=== PATIENT | female | born 1975 | race Caucasian/White ===

== ENCOUNTER 2021-01-03 17:33 | Emergency (ER) | payer BC, SELFPAY ==
[2021-01-03 17:38] VITALS: BP 114/70; PULSE 107; RESP 16; TEMP 36.5; O2SAT 100
--- NOTE | 2021-01-03 18:31 | ED.GENADULT ---
HPI - General Adult General Chief complaint: Urogenital-Female Stated complaint: FB VAGINA Time Seen by Provider: 01/03/21 18:31 Source: patient and RN notes reviewed Mode of arrival: ambulatory Limitations: no limitations History of Present Illness HPI narrative: 45-year-old female presents with complaints of foreign body in vaginal cavity for the past 2 hours. Maritza reports inserting a tampon in vaginal due to possible menstrual cycle, and is unable to remove it. No dysuria, burning, frequency, and urgency. No treatment. Denies fever or chills. Denies nausea, vomiting, and abdominal pain. Tolerating po intake well. No significant pelvic pain. No vaginal discharge. No concerns for STDs. Denies being , last menstrual 4 weeks ago, irregular, pre menopausal. No flank pain. No exacerbating factors. Denies hematuria or abnormal vaginal bleeding. Remains active. The patient reports she have not been diagnosed with COVID-19. The patient reports she is not waiting for the results of a COVID-19 lab test. The patient reports she do not have fever, chills, weakness, fatigue, or myalgia. The patient reports she do not have a new or worsening cough or shortness of breath. Denies chest pain. The patient reports she do not have any rhinorrhea, congestion, sore throat, or diarrhea. Denies recent traveling. Denies concerns for COVID-19 or exposures been home with limited outdoor exposure except for essential household needs, work, and return home. At this time, patient is not suspected of having COVID-19. Some parts of this dictation were generated by voice recognition software and may contain typographical and/or grammatical inaccuracies. Related Data Home Medications Medication Instructions Recorded Confirmed No Home Medications 01/03/21 01/03/21 Allergies Allergy/AdvReac Type Severity Reaction Status Date / Time shellfish derived Allergy Nausea and Verified 01/03/21 17:38 Vomiting Review of Systems Review of Systems: Narrative: Narrative: CONSTITUTIONAL: Denies fever, chills, sweats. EYES: Denies visual changes, redness, discharge. ENT: Denies rhinorrhea, congestion, sore throat, otalgia. CARDIOVASCULAR: Denies chest pain, palpitations, edema. RESPIRATORY: Denies dyspnea, wheezing, cough. GASTROINTESTINAL: Denies abdominal pain, nausea, vomiting, diarrhea. GENITOURINARY: Complains of stuck tampon in vagina. Denies dysuria, hematuria, abnormal discharge. SKIN: Denies rash or itching. MUSCULOSKELETAL: Denies acute back pain, joint pain, or myalgia. NEUROLOGIC: Denies numbness or focal weakness. PSYCHIATRIC: Denies anxiety or depression. All systems reviewed & are unremarkable except as noted in HPI and below. [facility] Past Medical History Medical History (Updated 01/04/21 @ 22:37 by LANETTE Webb) Ankle fracture Premenopausal patient Surgical History Surgical History (Updated 01/04/21 @ 22:37 by LANETTE Webb) History of bone graft at age 13 Family History Family History (Updated 01/04/21 @ 22:45 by LANETTE Webb) Father Lung cancer Smoker in home Mother Lung cancer Smoker in home Social History Social History (Updated 01/04/21 @ 22:46 by LANETTE Webb) Smoking status: Former smoker Tobacco type: cigarettes Second hand tobacco smoke exposure: No Smoking end date: 05/04/16 Alcohol intake: current Substance use: never Substance use type: does not use Living arrangements: with family Occupation/Education: occupation Gender identity (if verbalized by the patient): Female Sexual Orientation (if Verbalized by the Patient): Straight or Heterosexual Comments At time of signature, I have reviewed and agree with nursing past medical, surgical, social, and family history. Please see nursing chart for further information. There is no patient's past medical history or family history relevant pertinent t
== END 2021-01-03 18:52 | disposition home or self-care (01) ==
PROVIDERS: Emergency Provider Nurse Practitioner Family
DX: T19.2XXA Foreign body in vulva and vagina, initial encounter (principal); Z87.891 Personal history of nicotine dependence
CPT/HCPCS: 99212; G0463

== ENCOUNTER 2024-07-07 21:29 | Inpatient (IN) | payer OTHER, SELFPAY ==
--- NOTE | ~2024-07-07 | XR_ITS ---
XR chest 2V Ordering provider: Tisha Erazo PA-C History: 48 years Female with . cough, dyspnea . Comparison: None. FINDINGS: MEDIASTINUM: The cardiac silhouette is not enlarged. LUNGS: No effusions or pneumothorax. Loss of silhouette of the cardiac apex suggestive of atelectasis versus pneumonia in the lingula. Prominent markings in the right lung base medially. OTHER: No free air under the diaphragm. IMPRESSION: Highly suggestive of atelectasis versus pneumonia in the lingula. Follow-up advised. Reviewed, dictated and finalized at location A. IMPRESSION: Highly suggestive of atelectasis versus pneumonia in the lingula. Follow-up adv ised.
--- NOTE | ~2024-07-07 | CT_ITS ---
CT diagnostic chest w con Ordering provider: Britta Kumar MD History: 48 years Female with . hemoptysis . Comparison: None. Technique: CT chest with IV contrast. Radiation reduction technique utilized. The dose-length product was 219.54 mGy-cm. 75 mL Omnipaque 35 0 was given IV. Findings: VISUALIZED THORACIC INLET: Normal. Hypodensity in the left lobe of thyroid most likely small residual measuring 8 mm. Ultrasound evaluation advised. MEDIASTINUM: Aorta/coronary arteries: The thoracic aorta is normal. Heart/other: The heart is not enlarged. Lymph nodes: No mediastinal or hilar adenopathy. LUNGS: No pulmonary nodules or masses. No infiltrates or effusions. No pneumothorax. Dependent atelec tatic changes. VISUALIZED UPPER ABDOMEN: Fat infiltration of the liver Otherwise, the visualized upper abdomen is no rmal. MUSCULOSKELETAL: Soft tissues: The superficial soft tissues are normal. Bones: Age appropriate degenerative changes of the spine. IMPRESSION: No acute cardiopulmonary pathology. Dependent atelectatic changes. Fat infiltration of the liver. Hypodensity in the left lobe of the thyroid most likely nodule. Ultrasound evaluation advised. Reviewed, dictated and finalized at location A. IMPRESSION: No acute cardiopulmonary pathology. Dependent atelectatic changes. Fat infiltration of the liver. Hypodensity in the left lobe of the thyroid most likely nodule. Ultrasound eval uation advised.
--- NOTE | ~2024-07-07 | US_ITS ---
EXAMINATION: US right upper quadrant DATE: 07/08/2024 11:43 INDICATION: Abnormal liver function tests. Alcohol abuse. TECHNIQUE: Multiple grayscale and Doppler ultrasound images of the abdomen were obtained. COMPARISON: None FINDINGS: The visualized portions of the head and body of the pancreas are normal. There is diffuse h epatic steatosis. There is normal flow in main portal vein. The gallbladder is normal in size and con tains sludge. No definite gallstones. No gallbladder wall thickening or sonographic Hurtado sign. The common duct is normal and measures 5 mm. IMPRESSION: 1. Diffuse hepatic steatosis. Reviewed, dictated and finalized at location A.
[2024-07-07 21:30] VITALS: BP 137/81; PULSE 112; RESP 20; TEMP 36.6; O2SAT 94
--- NOTE | 2024-07-07 21:57 | PC.NURSE ---
patient states they have had two beat boxes which are drinks containing alcohol, as well as, an unknown amount of pink herman vodka drinks. they state they drink daily for an unknown amount of years. notified provider that their may be presence of blood in vomit since arrival
[2024-07-07] MEDS: ONDANSETRON INJ 4 MG/2 ML VIAL IV PUSH (22:12)
[2024-07-07 22:27] LABS: Influenza A QL RT-PCR Negative (Negative); Influenza B QL RT-PCR Negative (Negative); RSV RNA, RT-PCR Negative (Negative); SARS-CoV-2 RNA PCR Negative (Negative)
--- NOTE | 2024-07-07 22:35 | ECG_ITS ---
Test Date: 2024-07-07 22:52:28 Measurements Intervals [place] Rate: 122 P: 0 SC: 0 QRS: -3 QRSD: 76 T: 50 QT: 308 QTc: 439 Interpretive Statements SINUS TACHYCARDIA RV CONDUCTION DELAY ABNORMAL RHYTHM ECG No previous ECG available for comparison Electronically Signed On 07-08-2024 14:55:25 CDT by Manfred Zacarias M.D.
--- NOTE | 2024-07-07 22:43 | ED.NAVMDI ---
HPI - Nausea/Vomiting/Diarrhea General Chief complaint: Nausea/Vomiting/Diarrhea <Tisha Erazo PA-C - Last Filed: 07/09/24 14:03> Stated complaint: nausea,vomiting <TOÑO Alatorre Last Filed: 07/09/24 14:03> Time Seen by Provider: 07/07/24 21:50 <TOÑO Alatorre Last Filed: 07/09/24 14:03> History of Present Illness HPI Narrative: 48-year-old female presents emergency department for nausea and vomiting that started a couple hours ago. Patient states she is vomiting blood. States it changes from brown dark blood to bright red blood. She denies history of this. Denies chest pain, abdominal pain, melena or hematochezia. She denies anticoagulation or history of GI bleeds. She does state that she is an alcoholic and drinks approximately 8-12 oz of vodka a day. She is also endorsing some shortness of breath and cough since she has been vomiting. She is unsure if she has aspirated. She denies fever or known liver disease or esophageal varices. Patient's last alcohol drink was at 6:00 p.m.. <TOÑO Alatorre Last Filed: 07/09/24 14:03> Related Data Home medications: Home Medications Medication Instructions Recorded Confirmed No Home Medications 01/03/21 07/08/24 <Tisha Erazo PA-C - Last Filed: 07/09/24 14:03> Allergies/Adverse reactions: Allergies Allergy/AdvReac Type Severity Reaction Status Date / Time shellfish derived Allergy Nausea and Verified 07/08/24 09:26 Vomiting <TOÑO Alatorre Last Filed: 07/09/24 14:03> Review of Systems Review of Systems: All systems reviewed & are unremarkable except as noted in HPI and below <TOÑO Alatorre Last Filed: 07/09/24 14:03> PMFSH Past Medical History Medical History: Medical History (Updated 07/09/24 @ 12:55 by Nico Murphy MD) Ankle fracture Dehydration Elevated transaminase level Erosive esophagitis Premenopausal patient <Tisha Erazo PA-C - Last Filed: 07/09/24 14:03> Surgical History Surgical History: Surgical History History of bone graft at age 13 <Tisha Erazo PA-C - Last Filed: 07/09/24 14:03> Family History Family History: Family History (Updated 07/08/24 @ 02:55 by Thu Arias RN) Father Smoker in home Lung cancer Mother Smoker in home Lung cancer Other Brain cancer <Tisha Erazo PA-C - Last Filed: 07/09/24 14:03> Social History Social History: Social History Smoking status: Current every day smoker Tobacco type: cigarettes Second hand tobacco smoke exposure: Yes Smoking end date: 05/04/16 Additional smoking assessment comments: only smokes THC on a daily basis Alcohol intake: current Drinks per week: 20 Substance use: current Substance use type: marijuana Last use: 07/07/24 Do You Feel Safe in your Home?: Yes Lack of Transportation: No Lack of Food: Never True Current Housing: I Have Housing Concerned About Future Housing: No Difficulty Paying Gas/Electric Bills: No Difficulty Paying for Meds: No Currently Unemployed: No Education: High School Diploma/GED Difficulty w/ Childcare or Family Care: No Living arrangements: with family Occupation/Education: occupation Gender identity (if verbalized by the patient): Female Sexual Orientation (if Verbalized by the Patient): Straight or Heterosexual Spiritual care concerns: No <Tisha Erazo PA-C - Last Filed: 07/09/24 14:03> Exam Narrative: GENERAL: Ill-appearing HEAD: Normocephalic, atraumatic. EYES: PERRLA and EOMI. ENT: Nares clear, no rhinorrhea or epistaxis. Mucous membranes moist. NECK: Supple. CHEST: Rales in the left lower lung field HEART: Regular rate and rhythm. No murmur heard. Normal peripheral pulses. ABDOME
[2024-07-07] MEDS: PANTOPRAZOLE SODIUM IV 40 MG VIAL 80 MG IV PUSH (22:51)
[2024-07-07] MEDS: SODIUM CHLORIDE 0.9% IV 1,000 ML 999 ML IV CONT (22:51)
--- NOTE | 2024-07-07 22:59 | PC.NURSE ---
care and report given to GILMA Brar. all questions answered.
[2024-07-07 23:05] LABS: Basophils Absolute Auto 0.1 K/mm3 (0.0-0.1); Eosinophils Absolute Auto 0.1 K/mm3 (0-0.3); Eosinophils Percent Auto 1.3 % (0-4.4); Hematocrit 40.7 % (37.0-47.0); Hemoglobin 13.2 g/dL (12.0-15.0); Immature Granulocyte Absolute 0.02 K/mm3 (0.00-0.031); Immature Granulocyte Percent A 0.3 % (0-0.5); Lymphocytes Percent Auto 19.7 % (18.3-44.2); Mean Corpuscular HGB Conc 32.4 g/dl (32-36); Mean Corpuscular Hemoglobin 27.3 pg (26-34); Mean Corpuscular Volume 84.1 fl (80-100); Mean Platelet Volume 8.9 fl (7.4-10.4); Monocytes Absolute Auto 0.4 K/mm3 (0.1-0.6); Monocytes Percent Auto 5.8 % (2.6-8.5); Neutrophils Absolute Auto 5.1 K/mm3 (1.3-6.7); Neutrophils Percent Auto 71.9 % (45.5-73.1); Platelet Count Result 348 k/mm3 (150-375); Red Blood Count 4.84 M/mm3 (4.2-5.4); Red Cell Distribution Width 18.4 % (11.5-14.5); White Blood Count 7.1 K/mm3 (4.5-10.0)
[2024-07-07 23:11] LABS: Gastric Negative Control Negative; Gastric Positive Control Positive; Occult Blood Gastric Fluid Positive; pH Gastric Fluid 3 (1-8)
[2024-07-07 23:16] LABS: Alanine Aminotransferase 76 U/L (6-35); Albumin Level 4.3 g/dL (3.5-5.1); Alkaline Phosphatase 104 U/L (38-126); Anion Gap 20 mmol/L (4-12); Aspartate Amino Transferase 164 U/L (14-36); Bilirubin,Total 0.8 mg/dL (0.2-1.3); Calcium 8.2 mg/dL (8.4-10.2); Carbon Dioxide 20 mmol/L (22-30); Chloride 101 mmol/L (98-107); Estimated CRCL calculation 99 ml/min; Estimated Glomerular Filt Rate > 60; Glucose 138 mg/dL (65-110); Lipase 190 U/L (23-300); Magnesium 1.5 mg/dL (1.6-2.3); Potassium 3.6 mmol/L (3.4-5.0); Sodium 141 mmol/L (137-145)
[2024-07-07 23:17] LABS: INR 1.1; Prothrombin Time 14.3 Seconds (11.1-14.7)
[2024-07-07 23:18] LABS: Partial Thromboplastin Time 26.4 Seconds (22.3-36.8)
[2024-07-07 23:29] LABS: Blood Urea Nitrogen < 2 mg/dL (7-17)
[2024-07-07 23:31] LABS: Troponin I < 0.012 ng/mL (0.000-0.034)
[2024-07-08] VITALS (24 sets, daily range): BP systolic 98–164; BP diastolic 66–94; PULSE 94–116; RESP 12–26; TEMP 36.2–37.4; O2SAT 89–100; BMI 26.0
[2024-07-08] MEDS: PIPERACILLIN/TAZ 4.5G/NS 100ML 4.5 GM/100 ML BAG IVPB ×5 (00:30→23:13)
[2024-07-08 00:32] LABS: Ethanol 192 mg/dL (<10)
[2024-07-08] MEDS: SODIUM CHLORIDE 0.9% IV 1,000 ML 999 ML IV CONT (00:33)
[2024-07-08] MEDS: MAGNESIUM SULF 2 GM/WATER 50ML 2 GM/50 ML BAG IVPB (00:51)
[2024-07-08 01:07] LABS: Amphetamine Screen Urine Negative (Negative); Barbiturate Screen Urine Negative (Negative); Benzodiazepines Screen Urine Negative (Negative); Cannabinoid Screen Urine Positive (Negative); Cocaine Screen Urine Negative (Negative); Methadone Screen Urine Negative (Negative); Opiate Screen Urine Negative (Negative); Phencyclidine Screen Urine Negative (Negative)
[2024-07-08 01:16] LABS: Glucose Point of Care 109 mg/dl (65-105)
[2024-07-08 01:17] LABS: Hematocrit 36.7 % (37.0-47.0); Hemoglobin 11.6 g/dL (12.0-15.0)
--- NOTE | 2024-07-08 01:24 | PC.NURSE ---
states last alcoholic drink was at 1999 on 07/07/2024.
[2024-07-08] MEDS: TUBING, BLOOD PLUM PUMP TUBING 1 EACH XX (01:49)
[2024-07-08] MEDS: SODIUM CHLORIDE 0.9% IV 250 ML 30 ML IV CONT (01:49)
[2024-07-08 02:03] LABS: Reflex Lactic Acid Yes or No Add Lactic
[2024-07-08] MEDS: ONDANSETRON INJ 4 MG/2 ML VIAL IV PUSH (02:39)
[2024-07-08] MEDS: LORazepam INJ (*CRX) 2 MG/ML VIAL IV PUSH ×2 (02:39→16:45)
--- NOTE | 2024-07-08 02:45 | ADMGEN ---
This patient, Maritza Beavers, was admitted to Intensive Care Unit-9 on 07/08/24 at 0230. Patient/family oriented to hospital policies and general routines including ID bracelet, bed and alarms, visiting hours, pain management, procedures, bathroom and other care routines, personal items, smoking policy, room service/diet, and visiting hours. Information on how to activate the Rapid Response Team has been discussed. Patient/Family are encouraged to report perceived risks to care and to ask questions if they do not understand what they are told or what they should do.
[2024-07-08] MEDS: SODIUM CHLORIDE 0.9% IV 1,000 ML 125 ML IV CONT (03:02)
[2024-07-08] MEDS: DEXTROSE 5%/0.45% SOD CHL 1,000 ML 125 ML IV CONT ×2 (03:35→16:32)
[2024-07-08 06:12] LABS: Hematocrit 39.2 % (37.0-47.0); Hemoglobin 12.6 g/dL (12.0-15.0)
[2024-07-08 06:20] LABS: Lactic Acid Reflex 1.3 mmol/L (0.7-2.0)
[2024-07-08 06:25] LABS: Glucose Point of Care 153 mg/dl (65-105)
[2024-07-08 08:48] LABS: BEDSIDEPREGUCG Negative
--- NOTE | 2024-07-08 08:48 | WPDCNINT ---
Assessment and Plan Assessment and plan (1) Hematemesis: Qualifiers: Nausea presence: with nausea Qualified Code(s): K92.0 - Hematemesis Code(s): K92.0 - Hematemesis Status: Acute Assessment and Plan: Patient presented with episodes of hematemesis with bright red blood. Could be related to varices, ulcers secondary to alcoholism -blood counts remained stable on serial labs, hemodynamically stable -continue Protonix infusion -patient for EGD this morning (2) Alcohol abuse: Code(s): F10.10 - Alcohol abuse, uncomplicated Status: Acute Assessment and Plan: History of alcohol abuse, patient states she drinks a lot 8-12 oz of vodka daily or even more, she has been drinking for a long time. She does vape and uses marijuana -started on thiamine, folic acid -will watch for withdrawal symptoms -have counseled patient alcohol cessation and offered her to discuss with care coordination regarding alcohol rehab (3) Aspiration pneumonia: Qualifiers: Aspiration pneumonia type: due to vomit Laterality: left Lung location: lower lobe of lung Qualified Code(s): J69.0 - Pneumonitis due to inhalation of food and vomit Code(s): J69.0 - Pneumonitis due to inhalation of food and vomit Status: Acute Assessment and Plan: Chest x-ray shows possible atelectasis versus pneumonia in the lingula likely related to aspiration -patient started on Zosyn (07/08), will continue (4) Acidosis, lactic: Code(s): E87.20 - Acidosis, unspecified Status: Acute Assessment and Plan: Initial lactic acidosis which resolved with IV fluids could be related to hypovolemia and decreased end organ perfusion -patient's blood pressures have been stable -lactic acid has resolved Plan DVT prophylaxis: SCDs Stress ulcer prophylaxis: Protonix infusion Nutrition: NPO Code Status: Full code Critical Care Time Spent: 48 minutes Discussed with patient, she is aware that she will be getting a endoscopy to evaluate her hematemesis. I answered all questions Due to a high probability of clinically significant, life threatening deterioration, the patient required my highest level of preparedness to intervene emergently and I personally spent this critical care time directly and personally managing the patient. This critical care time included obtaining a history; examining the patient; pulse oximetry; ordering and review of studies; arranging urgent treatment with development of a management plan; evaluation of patient's response to treatment; frequent reassessment; and discussions with other providers. It was exclusive of separately billable procedures and treating other patients and teaching time. Please see Assessment and Plan section and the rest of the note for further information on patient assessment and treatment This dictation may have been done utilizing a voice recognition system. Attempts have been made to correct errors. However, there may be uncorrected grammatical, spelling, and recognitions errors present. Banking Officer Consult Note Consult date: 07/08/24 Reason for consult: Hematemesis, alcoholism HPI: Maritza Beavers is a 48 year old female past medical history of alcoholism presented the ED on 07/07/2024 with hematemesis that started that started on the day of admission. She stated that was initially dark blood and then it was bright red blood in her emesis. She denies any previous episodes of this. Denies any chest pain, shortness a breath, abdominal pain, nausea, vomiting. Denies any dark tarry stools or melena. She does not on any anticoagulation. She does drink 8-12 oz of vodka daily or more. She also complained of some shortness of breath with cough and phlegm. No history of liver disease or esophageal varices. Last drink was on the day of admission. Patient's initial hemoglobin was 13.2, WBC 7.1, platelets 348, PT/INR was 14.3/1.1, PTT was within normal limits.
[2024-07-08] MEDS: LACTATED RINGERS 1,000 ML 150 ML IV CONT (09:30)
--- NOTE | 2024-07-08 09:33 | WPDANESEPPF ---
Anes - Initial Pre Proc Eval Procedure: Operation Date: 07/08/24 16:30 Proposed Procedures p Esophagogastroduodenoscopy - Nico Murphy MD Date/Time: 07/08/24 09:33 Surgeon: Jac Orr MD Pre Op Diagnosis: Hematemesis Patient Data Age: 48 Gender: F Height: 1.63 m Weight: 68.8 kg Last Vital Signs Temp 97.6 F 07/08/24 09:27 Pulse 101 H 07/08/24 09:27 Resp 19 07/08/24 09:27 BP 124/85 07/08/24 09:27 Pulse Ox 97 07/08/24 09:27 O2 Del Method Room Air 07/08/24 09:27 O2 Flow Rate 2 07/08/24 02:51 Allergies Allergy/AdvReac Type Severity Reaction Status Date / Time shellfish derived Allergy Nausea and Verified 07/08/24 09:26 Vomiting Home Medications Medication Instructions Recorded Confirmed Type No Home Medications 01/03/21 07/08/24 History Laboratory Tests 07/07/24 07/07/24 07/08/24 21:45 22:59 00:41 WBC 7.1 K/mm3 (4.5-10.0) RBC 4.84 M/mm3 (4.2-5.4) Hgb 13.2 g/dL (12.0-15.0) Hct 40.7 % (37.0-47.0) MCV 84.1 fl (80-100) MCH 27.3 pg (26-34) MCHC 32.4 g/dl (32-36) RDW 18.4 H % (11.5-14.5) Plt Count 348 k/mm3 (150-375) MPV 8.9 fl (7.4-10.4) Immature Gran % (Auto) 0.3 % (0-0.5) Neut % (Auto) 71.9 % (45.5-73.1) Lymph % (Auto) 19.7 % (18.3-44.2) Butler % (Auto) 5.8 % (2.6-8.5) Eos % (Auto) 1.3 % (0-4.4) Baso % (Auto) 1.0 % (0.2-1.2) Lymph # (Auto) 1.40 K/mm3 (0.9-3.2) Butler # (Auto) 0.4 K/mm3 (0.1-0.6) Eos # (Auto) 0.1 K/mm3 (0-0.3) Baso # (Auto) 0.1 K/mm3 (0.0-0.1) Abs Immat Gran (auto) 0.02 K/mm3 (0.00-0.031) Absolute Neuts (auto) 5.1 K/mm3 (1.3-6.7) Absolute Nucleated RBC 0.000 K/mm3 (0.0-0.012) Nucleated RBC % 0.0 % (0.0-0.2) PT 14.3 Seconds (11.1-14.7) INR 1.1 APTT 26.4 Seconds (22.3-36.8) Sodium 141 mmol/L (137-145) Potassium 3.6 mmol/L (3.4-5.0) Chloride 101 mmol/L (98-107) Carbon Dioxide 20 L mmol/L (22-30) Anion Gap 20 H mmol/L (4-12) BUN < 2 L mg/dL (7-17) Creatinine 0.50 L mg/dL (0.7-1.0) Estim Creat Clear Calc 99 ml/min Estimated GFR > 60 (59 - ) Glucose 138 H mg/dL (65-110) POC Capillary Glucose Lactic Acid 5.0 H* mmol/L (0.7-2.0) Calcium 8.2 L mg/dL (8.4-10.2) Magnesium 1.5 L mg/dL (1.6-2.3) Total Bilirubin 0.8 mg/dL (0.2-1.3) AST 164 H U/L (14-36) ALT 76 H U/L (6-35) Alkaline Phosphatase 104 U/L (38-126) Troponin I < 0.012 ng/mL (0.000-0.034) Total Protein 8.0 g/dL (6.3-8.2) Albumin 4.3 g/dL (3.5-5.1) Lipase 190 U/L (23-300) POC Urine HCG, Qual POC Ur Preg QC Gastric Fluid pH 3 (1-8) Gastric Occult Blood Positive H Urine Opiates Screen Negative (Negative) Urine Methadone Screen Negative (Negative) Ur Barbiturates Screen Negative (Negative) Ur Phencyclidine Scrn Negative (Negative) Ur Amphetamine Screen Negative (Negative) U Benzodiazepines Scrn Negative (Negative) Urine Cocaine Screen Negative (Negative) U Cannabinoids Screen Positive A (Negative) Ethyl Alcohol 192 mg/dL (<10) Influenza A (RT-PCR) Negative (Negative) Influenza B (RT-PCR) Negative (Negative) RSV (RT-PCR) Negative (Negative) SARS-CoV-2 RNA (RT-PCR) Negative (Negative) Blood Type A Positive Antibody Screen Negative Crossmatch See Detail
--- NOTE | 2024-07-08 09:36 | WPDGICN ---
Assessment and Plan Assessment and plan (1) Hematemesis: Qualifiers: Nausea presence: with nausea Qualified Code(s): K92.0 - Hematemesis Code(s): K92.0 - Hematemesis Status: Acute Assessment and Plan: h/h stable probably esophagitis, ulcers but can not rule out varices given significant alcohol intake urgent EGD monitor for more signs of bleeding iv protonix (2) Aspiration pneumonia: Qualifiers: Aspiration pneumonia type: due to vomit Laterality: left Lung location: lower lobe of lung Qualified Code(s): J69.0 - Pneumonitis due to inhalation of food and vomit Code(s): J69.0 - Pneumonitis due to inhalation of food and vomit Status: Acute Assessment and Plan: started on abx (3) Acidosis, lactic: Code(s): E87.20 - Acidosis, unspecified Status: Acute Assessment and Plan: improved after hydration (4) Dehydration: Code(s): E86.0 - Dehydration Status: Acute (5) Alcohol abuse: Code(s): F10.10 - Alcohol abuse, uncomplicated Status: Acute Assessment and Plan: thiamine, monitor for withdrawal (6) Elevated transaminase level: Code(s): R74.01 - Elevation of levels of liver transaminase levels Status: Acute Assessment and Plan: mild elevated, monitor from alcohol use will get hepatitis panel and liver ultrasound GI Consult Note Consult date/time: 07/08/24 09:36 Reason for consult: hematemesis, alcohol abuse HPI: Maritza Beavers is a 48 year old female with past medical history of alcoholism that came to the ED last night with new onset of hematemesis. She noted dark emesis then was bright red blood in her emesis. Denies any dark tarry stools. She does drink 8-12 oz of vodka daily or more. Also had cough and some shortness of breath. No history of liver disease but does not see doctor in regular basis. Her initial hemoglobin was 13.2, WBC 7.1, platelets 348, PT/INR was 14.3/1.1, PTT was within normal limits. Lactic on admission was 5.0, patient did receive 2 L IV fluid bolus and repeat lactic acid was 1.3. Total bili was 0.8, AST was 64, ALT 76. Urine beta hCG was negative, gastric occult blood was positive. Urine drug screen was positive for cannabinoids, alcohol levels was 192. Influenza, RSV and COVID were negative. Chest x-ray on admission showed atelectasis versus pneumonia in the lingula. Patient was transferred to the ICU for closer monitoring and she is NPO status, will do EGD now. Review of Systems Constitutional: Constitutional: Reports fatigue Eyes: Eyes: Denies blurry vision ENT: Reports Normal hearing present Cardiovascular: Cardiovascular: Denies chest pain Respiratory: Respiratory: Reports cough and Reports dyspnea Gastrointestinal: Gastrointestinal: Reports hematemesis Genitourinary: Genitourinary: Denies hematuria Musculoskeletal: Musculoskeletal: Denies neck pain Integumentary/Breasts: Skin/Breast: Denies rash Neurologic: Denies confusion Psychiatric: Psychiatric: Reports anxiety PMFSH Past Medical History Medical History (Updated 07/08/24 @ 10:07 by Nico Murphy MD) Ankle fracture Dehydration Elevated transaminase level Premenopausal patient Surgical History Surgical History History of bone graft at age 13 Family History Family History (Updated 07/08/24 @ 02:55 by Thu Arias RN) Father Smoker in home Lung cancer Mother Smoker in home Lung cancer Other Brain cancer Social History Social History Smoking status: Current every day smoker Tobacco type: cigarettes Second hand tobacco smoke exposure: Yes Smoking end date: 05/04/16 Additional smoking assessment comments: only smokes THC on a daily basis Alcohol intake: current Drinks per week: 20 Substance use:
[2024-07-08 09:40] LABS: Basophils Percent Auto 0.3 % (0.2-1.2); Hematocrit 40.5 % (37.0-47.0); Hemoglobin 13.1 g/dL (12.0-15.0); Immature Granulocyte Absolute 0.04 K/mm3 (0.00-0.031); Immature Granulocyte Percent A 0.4 % (0-0.5); Lymphocytes Absolute Auto 0.64 K/mm3 (0.9-3.2); Lymphocytes Percent Auto 5.8 % (18.3-44.2); Mean Corpuscular HGB Conc 32.3 g/dl (32-36); Mean Corpuscular Hemoglobin 27.9 pg (26-34); Mean Corpuscular Volume 86.2 fl (80-100); Mean Platelet Volume 9.4 fl (7.4-10.4); Monocytes Absolute Auto 0.7 K/mm3 (0.1-0.6); Monocytes Percent Auto 5.9 % (2.6-8.5); Neutrophils Absolute Auto 9.6 K/mm3 (1.3-6.7); Neutrophils Percent Auto 87.6 % (45.5-73.1); Platelet Count Result 248 k/mm3 (150-375); Red Cell Distribution Width 18.3 % (11.5-14.5)
[2024-07-08 09:48] LABS: Ammonia 10 umol/L (9-30)
[2024-07-08 10:22] LABS: Alanine Aminotransferase 62 U/L (6-35); Albumin Level 3.5 g/dL (3.5-5.1); Alkaline Phosphatase 92 U/L (38-126); Anion Gap 14 mmol/L (4-12); Aspartate Amino Transferase 118 U/L (14-36); Bilirubin,Total 1.8 mg/dL (0.2-1.3); Blood Urea Nitrogen 3 mg/dL (7-17); Calcium 7.7 mg/dL (8.4-10.2); Carbon Dioxide 20 mmol/L (22-30); Chloride 104 mmol/L (98-107); Estimated CRCL calculation 99 ml/min; Estimated Glomerular Filt Rate > 60; Glucose 131 mg/dL (65-110); Magnesium 1.7 mg/dL (1.6-2.3); Phosphorus 3.5 mg/dL (2.5-4.5); Potassium 3.9 mmol/L (3.4-5.0); Sodium 138 mmol/L (137-145)
[2024-07-08] MEDS: THIAMINE HCL 200 MG/2 ML VIAL 100 MG IV PUSH (11:18)
[2024-07-08] MEDS: chlordiazePOXIDE (*CRX) 25 MG CAPSULE PO ×2 (11:18→23:12)
[2024-07-08] MEDS: SUCRALFATE SUSP 100 MG/ML 10 ML UDC 1000 MG PO ×3 (11:18→20:27)
[2024-07-08] MEDS: FOLIC ACID 1 MG/0.2 ML INJ IV PUSH (11:31)
[2024-07-08 11:49] LABS: Glucose Point of Care 113 mg/dl (65-105)
--- NOTE | 2024-07-08 13:56 | PC.NURSE ---
This patient, Maritza Beavers, was transferred to [facility] on 07/08/24 at 1320. Personal belongings sent with patient. Report given to Milli. Appropriate documentation sent with patient.
--- NOTE | 2024-07-08 16:36 | PM.IMHP ---
H&P: HPI History of Present Illness Date/Time: 07/08/24 16:36 Chief Complaint: vomiting/coughing up blood Narrative: 48-year-old female with no significant past medical history presented to ED on account of vomiting va coughing up blood. Patient was lethargic at bedside and noted that she started suddenly coughing and vomiting yesterday at about 5pm and coughed/vomited some blood which prompted presentation to the ER. He noted that patient was having SOB as well, otherwise was in her usual state of health. ER eval notable for T 99.4, HR 101, RR 21, BP 98/70 Left caodaism WBC 11.0, hemoglobin 11.6, bicarb 20, anion gap of 14, glucose 131, AST 118, ALT 62, bilirubin 1.8 urine drug screen positive for marijuana. Chest x-ray suggestive of atelectasis versus pneumonia in the lingula. Liver ultrasound positive for hepatic steatosis diffused. Patient was already undergone EEG which showed reflux esophagitis and hiatal hernia. GI recommended continuing IV Protonix and Carafate. Review of Systems Review of Systems: Patient was noted to convert provider review of system. [facility] Past Medical History Medical History (Updated 07/08/24 @ 16:49 by Britta Kumar MD) Ankle fracture Dehydration Elevated transaminase level Premenopausal patient Surgical History Surgical History History of bone graft at age 13 Family History Family History (Updated 07/08/24 @ 02:55 by Thu Arias RN) Father Smoker in home Lung cancer Mother Smoker in home Lung cancer Other Brain cancer Social History Social History Smoking status: Current every day smoker Tobacco type: cigarettes Second hand tobacco smoke exposure: Yes Smoking end date: 05/04/16 Additional smoking assessment comments: only smokes THC on a daily basis Alcohol intake: current Drinks per week: 20 Substance use: current Substance use type: marijuana Last use: 07/07/24 Do You Feel Safe in your Home?: Yes Lack of Transportation: No Lack of Food: Never True Current Housing: I Have Housing Concerned About Future Housing: No Difficulty Paying Gas/Electric Bills: No Difficulty Paying for Meds: No Currently Unemployed: No Education: High School Diploma/GED Difficulty w/ Childcare or Family Care: No Living arrangements: with family Occupation/Education: occupation Gender identity (if verbalized by the patient): Female Sexual Orientation (if Verbalized by the Patient): Straight or Heterosexual Spiritual care concerns: No Meds Home Medications and Allergies Home Medications Medication Instructions Recorded Confirmed Type No Home Medications 01/03/21 07/08/24 History Allergies Allergy/AdvReac Type Severity Reaction Status Date / Time shellfish derived Allergy Nausea and Verified 07/08/24 09:26 Vomiting Vital Signs Vital Signs - 24 hr 07/07/24 21:30 07/08/24 00:58 07/08/24 01:14 Temperature 97.9 F Pulse Rate 112 H 104 H 108 H Pulse Rate [Bilateral Pedal (Dorsalis Pedis) Palpation] Pulse Rate [Bilateral Radial Palpation] Pulse Rate [Monitor] Respiratory Rate 20 18 18 Blood Pressure 137/81 110/70 108/70 Pulse Oximetry 94 98 98 Oxygen Delivery Room Air Oxygen Flow Rate 07/08/24 01:42 07/08/24 02:00 07/08/24 02:13 Temperature 97.4 F L 97.2 F L 97.4 F L Pulse Rate 112 H 108 H 110 H Pulse Rate [Bilateral Pedal (Dorsalis Pedis) Palpation] Pulse Rate [Bilateral Radial Palpation] Pulse Rate [Monitor] Respiratory Rate 19 21 H 21 H Blood Pressure 110/68 112/74 112/74 Pulse Oximetry 100 96 95 Oxygen Delivery Oxygen Flow Rate 07/08/24 02:38 07/08/24 02:44 07/08/24 02:51 Temperature 98 F Pulse Rate 103 H Pulse Rate [Bilateral Pedal (Dorsalis Pedis) Palpation] Pulse Rate [Bilateral Radial Palpation]
[2024-07-08 17:20] LABS: Glucose Point of Care 124 mg/dl (65-105)
[2024-07-08] MEDS: metroNIDAZOLE 500 MG/ISO 100ML 500 MG/100 ML BAG 100 MG IVPB ×2 (17:21→23:12)
[2024-07-08] MEDS: levoFLOXacin 750 MG/D5W 150 ML 750 MG/150 ML BAG 100 MG IVPB (18:52)
[2024-07-08 19:26] LABS: Hematocrit 36.5 % (37.0-47.0); Hemoglobin 11.5 g/dL (12.0-15.0)
[2024-07-08 19:51] LABS: MRSA (PCR) NOT DETECTED (NOT DETECTE)
[2024-07-08] MEDS: PANTOPRAZOLE SODIUM IV 40 MG VIAL IV PUSH (20:27)
[2024-07-08 23:22] LABS: Glucose Point of Care 98 mg/dl (65-105)
[2024-07-09] VITALS (12 sets, daily range): BP systolic 117–164; BP diastolic 74–87; PULSE 79–109; RESP 18–22; TEMP 36.1–36.8; O2SAT 96–100
[2024-07-09 04:50] LABS: Basophils Percent Auto 0.5 % (0.2-1.2); Eosinophils Absolute Auto 0.2 K/mm3 (0-0.3); Eosinophils Percent Auto 2.3 % (0-4.4); Hematocrit 37.1 % (37.0-47.0); Hemoglobin 11.4 g/dL (12.0-15.0); Immature Granulocyte Absolute 0.03 K/mm3 (0.00-0.031); Immature Granulocyte Percent A 0.5 % (0-0.5); Lymphocytes Absolute Auto 1.28 K/mm3 (0.9-3.2); Lymphocytes Percent Auto 19.3 % (18.3-44.2); Mean Corpuscular HGB Conc 30.7 g/dl (32-36); Mean Corpuscular Hemoglobin 27.2 pg (26-34); Mean Corpuscular Volume 88.5 fl (80-100); Mean Platelet Volume 9.6 fl (7.4-10.4); Monocytes Absolute Auto 0.6 K/mm3 (0.1-0.6); Monocytes Percent Auto 8.3 % (2.6-8.5); Neutrophils Absolute Auto 4.6 K/mm3 (1.3-6.7); Neutrophils Percent Auto 69.1 % (45.5-73.1); Platelet Count Result 191 k/mm3 (150-375); Red Blood Count 4.19 M/mm3 (4.2-5.4); Red Cell Distribution Width 18.1 % (11.5-14.5); White Blood Count 6.6 K/mm3 (4.5-10.0)
[2024-07-09 05:03] LABS: Alanine Aminotransferase 44 U/L (6-35); Albumin Level 3.1 g/dL (3.5-5.1); Alkaline Phosphatase 68 U/L (38-126); Anion Gap 10 mmol/L (4-12); Aspartate Amino Transferase 60 U/L (14-36); Bilirubin,Total 1.9 mg/dL (0.2-1.3); Blood Urea Nitrogen 2 mg/dL (7-17); Carbon Dioxide 22 mmol/L (22-30); Chloride 104 mmol/L (98-107); Estimated CRCL calculation 84 ml/min; Estimated Glomerular Filt Rate > 60; Glucose 93 mg/dL (65-110); Magnesium 2.1 mg/dL (1.6-2.3); Potassium 3.3 mmol/L (3.4-5.0); Sodium 136 mmol/L (137-145)
[2024-07-09] MEDS: chlordiazePOXIDE (*CRX) 25 MG CAPSULE PO ×3 (05:16→17:58)
[2024-07-09] MEDS: PIPERACILLIN/TAZ 4.5G/NS 100ML 4.5 GM/100 ML BAG IVPB ×3 (05:16→17:57)
[2024-07-09] MEDS: SUCRALFATE SUSP 100 MG/ML 10 ML UDC 1000 MG PO ×4 (05:16→20:37)
[2024-07-09 05:34] LABS: Hepatitis B Surface Antigen Negative (Negative)
[2024-07-09 05:39] LABS: HAV RESULT Negative (Negative); Hepatitis B Core IgM Result Negative (Negative)
[2024-07-09 05:51] LABS: Hepatitis C Virus Antibody Negative (Negative)
[2024-07-09 06:45] LABS: Glucose Point of Care 99 mg/dl (65-105)
[2024-07-09] MEDS: PANTOPRAZOLE SODIUM IV 40 MG VIAL IV PUSH ×2 (08:28→20:37)
[2024-07-09] MEDS: metroNIDAZOLE 500 MG/ISO 100ML 500 MG/100 ML BAG 100 MG IVPB ×2 (08:29→16:33)
[2024-07-09] MEDS: THIAMINE HCL 200 MG/2 ML VIAL 100 MG IV PUSH (08:32)
[2024-07-09] MEDS: FOLIC ACID 1 MG/0.2 ML INJ IV PUSH (08:32)
--- NOTE | 2024-07-09 11:30 | PCSTNOTE ---
Please refer to the Bedside Swallow Evaluation in the EMR. Please note, silent aspiration cannot be ruled out at bedside. Maritza was sitting upright in bed when seen for bedside swallow evaluation. She was alert and cooperative. Patient presents with hoarse voice quality and reports having a sore throat due to vomiting. She had bites of pudding with normal swallow function observed. Drinks of water from straw cup were also completed without trouble. She presented with no coughing and clear voice quality. Patient is eager to return to eating and enjoyed the pudding although refused cracker since it would hurt her throat. A regular diet, Level 7 is recommended with patient choosing foods per her tolerance. Thin liquid, Level 0 recommended. Should patient present with coughing at meals a re-evaluation could be completed but at this time, judging from bedside swallow evaluation, swallow function appears safe.
--- NOTE | 2024-07-09 12:12 | PM.IMPN ---
Progress Note: A&P Assessment and Plan (1) Pneumonia: Code(s): J18.9 - Pneumonia, unspecified organism Status: Acute Plan Pneumonia, Gram-negative versus Chest x-ray showed possible infiltrates in the lingula CT chest ordered Blood culture, start Levaquin and Flagyl MRSA pending Hematemesis versus hemoptysis, resolved Status post EGD showed reflux esophagitis with hiatal hernia Continue Protonix IV and Carafate GI following. Alcoholic hepatitis Patient drinks about 6 drinks a day last drink was a day prior to presentation hep viral garcia negative, US liver showed diffuse hepatosteatosis LFTs improving monitor Alcohol abuse Patient drinks 6 drinks per day last drink was a day prior to presentation Continue CIWA protocol, banana bag ordered. Counseled about cessation of alcohol abuse. continue CIWA protocol DVT prophylaxis SCDs, restart anticoagulation once hemoptysis resolved. Subjective Date/time seen: 07/09/24 12:12 Interval history: Comfortable but still very weak. day 2 of last alcohol drink will keep monitoring on CIWA protocol Review of Systems Review of Systems: Patient was noted to convert provider review of system. All systems reviewed & are unremarkable except as noted in HPI and below Exam Narrative: General: alert and lethargic. Eyes: EOMI, PERRLA ENNT External ears normal, Neck is supple, no masses, Respiratory systems: Clear to auscultation Cardiovascular S1, S2, normal rhythm, no murmur, rub, or gallop; no thrill or palpable murmurs on palpation. Gastrointestinal: soft, non-tender, and non-distended abdomen with no masses; BS present Skin: no rash, lesions, ulcerations, subcutaneous nodules or induration Musculoskeletal: no abnormality and no tenderness, normal ROM Neurologic: Alert and oriented x3, non focal Mental Status Exam: normal affect Objective Data Vital Signs Vital Signs: Vital Signs - 24 hr 07/08/24 14:14 07/08/24 14:00 07/08/24 16:00 Temperature 97.5 F L 97.6 F Pulse Rate 96 96 Pulse Rate [Bilateral Pedal (Dorsalis Pedis) Palpation] Pulse Rate [Bilateral Radial Palpation] Respiratory Rate 17 18 Blood Pressure 122/83 120/78 Pulse Oximetry 96 96 Oxygen Delivery Room Air 07/08/24 18:10 07/08/24 16:00 07/08/24 20:00 Temperature Pulse Rate 94 102 H 96 Pulse Rate [Bilateral Pedal (Dorsalis Pedis) Palpation] Pulse Rate [Bilateral Radial Palpation] Respiratory Rate Blood Pressure 125/77 Pulse Oximetry Oxygen Delivery 07/08/24 20:00 07/08/24 23:12 07/09/24 00:00 Temperature 98.6 F 97.7 F Pulse Rate 96 104 H 95 Pulse Rate [Bilateral Pedal (Dorsalis Pedis) Palpation] Pulse Rate [Bilateral Radial Palpation] Respiratory Rate 18 20 Blood Pressure 123/66 164/84 H Pulse Oximetry 94 93 Oxygen Delivery 07/09/24 00:00 07/09/24 04:00 07/09/24 04:00 Temperature 97.8 F Pulse Rate 94 93 Pulse Rate [Bilateral Pedal (Dorsalis Pedis) Palpation] 109 H Pulse Rate [Bilateral Radial Palpation] 101 H Respiratory Rate 20 Blood Pressure 164/84 H 121/74 Pulse Oximetry 96 Oxygen Delivery 07/09/24 08:00 07/09/24 08:27 07/09/24 11:37 Temperature 97.4 F L Pulse Rate 89 85 Pulse Rate [Bilateral Pedal (Dorsalis Pedis) Palpation] Pulse Rate [Bilateral Radial Palpation] Respiratory Rate 20 Blood Pressure 118/84 121/84 Pulse Oximetry 96 96 100 Oxygen Delivery Room Air 07/09/24 11:38 07/09/24 11:37 07/09/24 11:37 Temperature 97.2 F L Pulse Rate 85 87 88 Pulse Rate [Bilateral Pedal (Dorsalis Pedis) Palpation] Pulse Rate [Bilateral Radial Palpation] Respiratory Rate 22 H Blood Pressure 121/84 120/84 117/78 Pulse Oximetry 100 99 100 Oxygen Delivery Intake/Output Intake/Output: Intake & Output 07/06/24 07/07/24 07/08/24 07/09/24 23:59 23:59 23:59 23:59 Intake Total 3939.6 1030 Output Total 500 Balance 3439.6 1030 Meds/Res
[2024-07-09 12:13] LABS: Glucose Point of Care 106 mg/dl (65-105)
--- NOTE | 2024-07-09 12:54 | WPDGIPROGNO ---
Progress Note: A&P Assessment and Plan (1) Erosive esophagitis: Code(s): K22.10 - Ulcer of esophagus without bleeding Status: Acute Assessment and Plan: protonix twice daily and carafate ok to advance diet no more emesis or bleeding egd in 4-6 months to assess healing she needs to stop drinking alcohol (2) Hematemesis: Qualifiers: Nausea presence: with nausea Qualified Code(s): K92.0 - Hematemesis Code(s): K92.0 - Hematemesis Status: Acute Assessment and Plan: due to ulcerative esophagitis medical management (3) Alcohol abuse: Code(s): F10.10 - Alcohol abuse, uncomplicated Status: Acute Assessment and Plan: [facility] protocol (4) Pneumonia: Code(s): J18.9 - Pneumonia, unspecified organism Status: Acute Assessment and Plan: on abx (5) Elevated transaminase level: Code(s): R74.01 - Elevation of levels of liver transaminase levels Status: Acute Assessment and Plan: ultrasound showed fatty liver (6) Dehydration: Code(s): E86.0 - Dehydration Status: Acute Subjective Date/time seen: 07/09/24 12:54 Interval history: she is feeling better, no more emesis egd yesterday with ulcerative esophagitis Review of Systems Review of Systems: All systems reviewed & are unremarkable except as noted in HPI and below Exam Const: General: comfortable and no acute distress HENMT: Face/Nose/Sinus: Normal nares present Eyes: General: appearance normal, both eyes and all related structures Neck: Neck: supple Resp: Auscultation: clear to auscultation bilaterally Cardio: Rate: regular rate GI: Inspection: non-distended GI Palp: Yes Soft to palpation and No Tenderness to palpation present (GI) Auscultation: normal bowel sounds Skin: General skin exam: normal color Neuro: Speech: normal speech Motor exam (neuro): 5/5 motor strength present throughout Extrem: General: normal to inspection Psych: Affect: Anxious affect present Objective Data Vital Signs Vital Signs: Vital Signs - 24 hr 07/08/24 14:14 07/08/24 14:00 07/08/24 16:00 Temperature 97.5 F L 97.6 F Pulse Rate 96 96 Pulse Rate [Bilateral Pedal (Dorsalis Pedis) Palpation] Pulse Rate [Bilateral Radial Palpation] Respiratory Rate 17 18 Blood Pressure 122/83 120/78 Pulse Oximetry 96 96 Oxygen Delivery Room Air 07/08/24 18:10 07/08/24 16:00 07/08/24 20:00 Temperature Pulse Rate 94 102 H 96 Pulse Rate [Bilateral Pedal (Dorsalis Pedis) Palpation] Pulse Rate [Bilateral Radial Palpation] Respiratory Rate Blood Pressure 125/77 Pulse Oximetry Oxygen Delivery 07/08/24 20:00 07/08/24 23:12 07/09/24 00:00 Temperature 98.6 F 97.7 F Pulse Rate 96 104 H 95 Pulse Rate [Bilateral Pedal (Dorsalis Pedis) Palpation] Pulse Rate [Bilateral Radial Palpation] Respiratory Rate 18 20 Blood Pressure 123/66 164/84 H Pulse Oximetry 94 93 Oxygen Delivery 07/09/24 00:00 07/09/24 04:00 07/09/24 04:00 Temperature 97.8 F Pulse Rate 94 93 Pulse Rate [Bilateral Pedal (Dorsalis Pedis) Palpation] 109 H Pulse Rate [Bilateral Radial Palpation] 101 H Respiratory Rate 20 Blood Pressure 164/84 H 121/74 Pulse Oximetry 96 Oxygen Delivery 07/09/24 08:00 07/09/24 08:27 07/09/24 11:37 Temperature 97.4 F L Pulse Rate 89 85 Pulse Rate [Bilateral Pedal (Dorsalis Pedis) Palpation] Pulse Rate [Bilateral Radial Palpation] Respiratory Rate 20 Blood Pressure 118/84 121/84 Pulse Oximetry 96 96 100 Oxygen Delivery Room Air 07/09/24 11:38 07/09/24 11:37 07/09/24 11:37 Temperature 97.2 F L Pulse Rate 85 87 88 Pulse Rate [Bilateral Pedal (Dorsalis Pedis) Palpation] Pulse Rate [Bilateral Radial Palpation] Respiratory Rate 22 H Blood Pressure 121/84 120/84 117/78 Pulse Oximetry 100 99 100 Oxygen Delivery Intake/Output Intake/Output: Intake & Output 08
[2024-07-09] MEDS: DEXTROSE 5%/0.45% SOD CHL 1,000 ML 50 ML IV CONT ×2 (14:05→20:36)
[2024-07-09] MEDS: SODIUM CHLORIDE 0.9% IV 100 ML 30 ML (17:57)
[2024-07-09] MEDS: levoFLOXacin 750 MG/D5W 150 ML 750 MG/150 ML BAG 100 MG IVPB (18:51)
[2024-07-10] VITALS: BP 123/88; PULSE 95; PULSE 96
[2024-07-10 00:14] LABS: Glucose Point of Care 91 mg/dl (65-105)
[2024-07-10] MEDS: PIPERACILLIN/TAZ 4.5G/NS 100ML 4.5 GM/100 ML BAG IVPB ×2 (00:55→06:33)
[2024-07-10] MEDS: chlordiazePOXIDE (*CRX) 25 MG CAPSULE PO ×3 (01:08→12:27)
[2024-07-10] MEDS: metroNIDAZOLE 500 MG/ISO 100ML 500 MG/100 ML BAG 100 MG IVPB ×2 (01:09→09:07)
[2024-07-10 04:00] VITALS: BP 123/88; PULSE 66; PULSE 94
[2024-07-10 04:38] VITALS: BP 123/88; PULSE 77; RESP 18; TEMP 36.6; O2SAT 99
[2024-07-10 04:59] LABS: Basophils Percent Auto 0.8 % (0.2-1.2); Eosinophils Absolute Auto 0.2 K/mm3 (0-0.3); Eosinophils Percent Auto 3.9 % (0-4.4); Hematocrit 36.7 % (37.0-47.0); Hemoglobin 11.2 g/dL (12.0-15.0); Immature Granulocyte Absolute 0.03 K/mm3 (0.00-0.031); Immature Granulocyte Percent A 0.6 % (0-0.5); Lymphocytes Absolute Auto 1.28 K/mm3 (0.9-3.2); Lymphocytes Percent Auto 26.1 % (18.3-44.2); Mean Corpuscular HGB Conc 30.5 g/dl (32-36); Mean Corpuscular Hemoglobin 27.2 pg (26-34); Mean Corpuscular Volume 89.1 fl (80-100); Mean Platelet Volume 10.2 fl (7.4-10.4); Monocytes Absolute Auto 0.4 K/mm3 (0.1-0.6); Monocytes Percent Auto 8.2 % (2.6-8.5); Neutrophils Percent Auto 60.4 % (45.5-73.1); Platelet Count Result 179 k/mm3 (150-375); Red Blood Count 4.12 M/mm3 (4.2-5.4); Red Cell Distribution Width 17.8 % (11.5-14.5); White Blood Count 4.9 K/mm3 (4.5-10.0)
[2024-07-10 05:14] LABS: Glucose Point of Care 86 mg/dl (65-105)
[2024-07-10 05:19] LABS: Alanine Aminotransferase 35 U/L (6-35); Alkaline Phosphatase 62 U/L (38-126); Anion Gap 7 mmol/L (4-12); Aspartate Amino Transferase 52 U/L (14-36); Bilirubin,Total 1.4 mg/dL (0.2-1.3); Calcium 7.5 mg/dL (8.4-10.2); Carbon Dioxide 25 mmol/L (22-30); Chloride 107 mmol/L (98-107); Estimated CRCL calculation 99 ml/min; Estimated Glomerular Filt Rate > 60; Glucose 88 mg/dL (65-110); Magnesium 1.8 mg/dL (1.6-2.3); Potassium 3.6 mmol/L (3.4-5.0); Sodium 139 mmol/L (137-145)
[2024-07-10 06:12] LABS: Blood Urea Nitrogen < 2 mg/dL (7-17)
[2024-07-10] MEDS: SUCRALFATE SUSP 100 MG/ML 10 ML UDC 1000 MG PO ×2 (06:33→12:27)
[2024-07-10 08:00] VITALS: PULSE 71
[2024-07-10] MEDS: PANTOPRAZOLE SODIUM IV 40 MG VIAL IV PUSH (09:10)
[2024-07-10] MEDS: FOLIC ACID 1 MG/0.2 ML INJ IV PUSH (09:10)
[2024-07-10] MEDS: THIAMINE HCL 200 MG/2 ML VIAL 100 MG IV PUSH (09:10)
--- NOTE | 2024-07-10 09:23 | WPDGIPROGNO ---
Progress Note: A&P Assessment and Plan (1) Erosive esophagitis: Code(s): K22.10 - Ulcer of esophagus without bleeding Status: Acute Assessment and Plan: carafate for 2 weeks protonix twice daily tolerating diet egd in 4-6 months to assess healing she needs to stop drinking alcohol home soon, will follow as needed (2) Hematemesis: Qualifiers: Nausea presence: with nausea Qualified Code(s): K92.0 - Hematemesis Code(s): K92.0 - Hematemesis Status: Acute Assessment and Plan: due to ulcerative esophagitis medical management resolved (3) Alcohol abuse: Code(s): F10.10 - Alcohol abuse, uncomplicated Status: Acute Assessment and Plan: [facility] protocol no tremors (4) Pneumonia: Code(s): J18.9 - Pneumonia, unspecified organism Status: Acute Assessment and Plan: on abx (5) Elevated transaminase level: Code(s): R74.01 - Elevation of levels of liver transaminase levels Status: Acute Assessment and Plan: ultrasound showed fatty liver Subjective Date/time seen: 07/10/24 09:23 Interval history: eating more and feeling better Review of Systems Review of Systems: All systems reviewed & are unremarkable except as noted in HPI and below Exam Const: General: comfortable and no acute distress HENMT: Face/Nose/Sinus: Normal nares present Eyes: General: appearance normal, both eyes and all related structures Neck: Neck: supple Resp: Auscultation: clear to auscultation bilaterally Cardio: Rate: regular rate GI: Inspection: non-distended GI Palp: Yes Soft to palpation and No Tenderness to palpation present (GI) Auscultation: normal bowel sounds Skin: General skin exam: normal color Neuro: Speech: normal speech Motor exam (neuro): 5/5 motor strength present throughout Extrem: General: normal to inspection Psych: Affect: Anxious affect present Objective Data Vital Signs Vital Signs: Vital Signs - 24 hr 07/09/24 11:37 07/09/24 11:38 07/09/24 11:37 Temperature 97.2 F L Pulse Rate 85 85 87 Pulse Rate [Bilateral Radial Palpation] Respiratory Rate 22 H Blood Pressure 121/84 121/84 120/84 Pulse Oximetry 100 100 99 Oxygen Delivery 07/09/24 11:37 07/09/24 16:00 07/09/24 12:00 Temperature 98.3 F Pulse Rate 88 81 84 Pulse Rate [Bilateral Radial Palpation] Respiratory Rate 18 Blood Pressure 117/78 131/87 Pulse Oximetry 100 98 Oxygen Delivery 07/09/24 16:27 07/09/24 20:00 07/09/24 20:00 Temperature 97 F L Pulse Rate 79 90 Pulse Rate [Bilateral Radial Palpation] 98 Respiratory Rate 18 Blood Pressure 124/78 124/78 Pulse Oximetry 99 Oxygen Delivery 07/09/24 20:00 07/09/24 23:58 07/09/24 21:10 Temperature 97.1 F L Pulse Rate 90 83 Pulse Rate [Bilateral Radial Palpation] Respiratory Rate 18 18 Blood Pressure 124/75 Pulse Oximetry 99 99 99 Oxygen Delivery Room Air Room Air 07/10/24 04:38 07/09/24 20:00 07/10/24 00:00 Temperature 97.9 F Pulse Rate 77 90 95 Pulse Rate [Bilateral Radial Palpation] Respiratory Rate 18 Blood Pressure 123/88 Pulse Oximetry 99 Oxygen Delivery 07/10/24 04:00 07/10/24 00:00 07/10/24 04:00 Temperature Pulse Rate 66 Pulse Rate [Bilateral Radial Palpation] 96 94 Respiratory Rate Blood Pressure 123/88 123/88 Pulse Oximetry Oxygen Delivery Intake/Output Intake/Output: Intake & Output 07/07/24 07/08/24 07/09/24 07/10/24 23:59 23:59 23:59 23:59 Intake Total 3939.6 2775.0 600 Output Total 500 1550 1275 Balance 3439.6 1225.0 -675 Meds/Results Medications: Active Medications Generic Name Dose Route Start Last Admin Trade Name Vincent PRN Reason Stop Dose Admin Chlordiazepoxide HCl 25 mg 07/08/24 12:00 07/10/24 06:33 Chlordiazepoxide (*Crx) 25 Mg Capsule PO 25 mg Q6HR KOKO Administration Folic Acid 1 mg 07/08/24 09:30 07/10/24 09:10 F
[2024-07-10 09:43] VITALS: BP 133/76; PULSE 78; RESP 16; TEMP 36.5; O2SAT 100
--- NOTE | 2024-07-10 11:45 | PM.DS ---
DS: Admitting Diagnosis Discharge Date 07/10/24 Admitting Diagnosis Hematemesis DS: Discharge Diagnosis Discharge Diagnosis (1) Erosive esophagitis: Code(s): K22.10 - Ulcer of esophagus without bleeding Status: Acute (2) Alcohol abuse: Code(s): F10.10 - Alcohol abuse, uncomplicated Status: Acute DS: Summary Hospital Course Hospital Course: 48-year-old female with no significant past medical history presented to ED on account of vomiting va coughing up blood. Patient was lethargic at bedside and noted that she started suddenly coughing and vomiting yesterday at about 5pm and coughed/vomited some blood which prompted presentation to the ER. He noted that patient was having SOB as well, otherwise was in her usual state of health. ER eval notable for T 99.4, HR 101, RR 21, BP 98/70 Left mu-ism WBC 11.0, hemoglobin 11.6, bicarb 20, anion gap of 14, glucose 131, AST 118, ALT 62, bilirubin 1.8 urine drug screen positive for marijuana. Chest x-ray suggestive of atelectasis versus pneumonia in the lingula. Liver ultrasound positive for hepatic steatosis diffused. Patient was already undergone EEG which showed erosive esophagitis and hiatal hernia. GI recommended continuing IV Protonix and Carafate. Plan Pneumonia, Gram-negative versus Chest x-ray showed possible infiltrates in the lingula CT chest ruled out Pnuemonia Abx discontinued Hematemesis versus hemoptysis, resolved Status post EGD showed erosisve esophagitis with hiatal hernia Continue Protonix IV and Carafate Discharged on PO Carafate x 14 dayand Protonix 40mg bid x 8 weeks per GI F/u with Gi as instructed Alcoholic hepatitis Patient drinks about 6 drinks a day last drink was a day prior to presentation hep viral garcia negative, US liver showed diffuse hepatosteatosis LFTs resolved F/u with PCP, patient noted she will not return to drinking alcohol again Alcohol abuse Patient drinks 6 drinks per day last drink was a day prior to presentation Continue CIWA protocol, banana bag ordered. Counseled about cessation of alcohol abuse. Discharged on PRN Librium. F/u with PCP in 3-5 days F/u with Gi as instructed, f/u with PCP in 3-5 days Counseled about not drinking alcohol and taking Librium Time Spent with Patient Time attestation: Total time spent providing and/or coordinating discharge services: DS: Data Data Completed and Pending Pending studies at discharge: Pending at discharge 07/08/24 09:42 Surgical [PTH] Routine Labs on day of discharge: Labs from last 24 hours 07/10/24 07/10/24 07/10/24 05:12 04:36 00:11 WBC 4.9 RBC 4.12 L Hgb 11.2 L Hct 36.7 L MCV 89.1 MCH 27.2 MCHC 30.5 L RDW 17.8 H Plt Count 179 MPV 10.2 Immature Gran % (Auto) 0.6 H Neut % (Auto) 60.4 Lymph % (Auto) 26.1 [place] % (Auto) 8.2 Eos % (Auto) 3.9 Baso % (Auto) 0.8 Lymph # (Auto) 1.28 [place] # (Auto) 0.4 Eos # (Auto) 0.2 Baso # (Auto) 0.0 Abs Immat Gran (auto) 0.03 Absolute Neuts (auto) 3.0 Absolute Nucleated RBC 0.000 Nucleated RBC % 0.0 Sodium 139 Potassium 3.6 Chloride 107 Carbon Dioxide 25 Anion Gap 7 BUN < 2 L Creatinine 0.50 L Estim Creat Clear Calc 99 Estimated GFR > 60 Glucose 88 POC Capillary Glucose 86 91 Calcium 7.5 L Magnesium 1.8 Total Bilirubin 1.4 H AST 52 H ALT 35 Alkaline Phosphatase 62 Total Protein 6.0 L Albumin 3.0 L 07/09/24 12:05 WBC RBC Hgb Hct MCV MCH MCHC RDW Plt Count MPV Immature Gran % (Auto) Neut % (Auto) Lymph % (Auto) [place] % (Auto) Eos % (Auto) Baso % (Auto) Lymph # (Auto) [place] # (Auto) Eos # (Auto) Baso # (Auto) Abs Immat Gran (auto) Absolute Neuts (auto) Absolute Nucleated RBC Nucleated RBC % Sodium Potassium Chloride Carbon Dioxide Anion Gap BUN Creatinine Estim Creat Clear Ca
== END 2024-07-10 13:45 | disposition home or self-care (01) | DRG 381 ==
LOC: ANHED 07-08 00:55 → ANHIMU 07-08 01:46 → ANHICU 07-08 01:48 → ANH2MED 07-08 13:34
PROVIDERS: Internal Medicine; Internal Medicine Gastroenterology; Preventive Medicine Aerospace Medicine; Admitting Provider Internal Medicine; Emergency Provider Physician Assistant; Visit Provider Internal Medicine
PROC: 0DJ08ZZ Inspection of Upper Intestinal Tract, Via Natural or Artificial Opening Endoscopic (ICD-10-PCS; CPT 43235; principal; 2024-07-08 16:30)
DX: K22.11 Ulcer of esophagus with bleeding (principal); E87.21 Acute metabolic acidosis; K70.10 Alcoholic hepatitis without ascites; K44.9 Diaphragmatic hernia without obstruction or gangrene; K76.0 Fatty (change of) liver, not elsewhere classified; F17.210 Nicotine dependence, cigarettes, uncomplicated; E86.0 Dehydration; F10.20 Alcohol dependence, uncomplicated; Z20.822 Contact with and (suspected) exposure to COVID-19
CPT/HCPCS: 36415; 36430; 71046; 71260; 76705; 80053; 80074; 80307; 82140; 82271; 82948; 83605; 83690; 83735; 83986; 84100; 84484; 85014; 85018; 85025; 85610; 85730; 86850; 86900; 86901; 86923; 87040; 87637; 87641; 88305; 92610; 93005; 96361; 96375; 99285; A9270; G0378; J1836; J1956; J2060; J2405; J2470; J2543; J2704; J3411; J3475; J7030; J7050; J7120; P9016; Q9967

== ENCOUNTER 2024-12-23 13:17 | Emergency (ER) | payer OTHER, SELFPAY ==
[2024-12-23 13:32] VITALS: BP 131/90; PULSE 85; RESP 16; TEMP 36.9; O2SAT 99
--- NOTE | 2024-12-23 13:39 | ED_ITS ---
HPI - Wound/Laceration General Chief Complaint: Wound/Laceration Stated Complaint: cut left index finger @ work Time Seen by Provider: 12/23/24 13:19 Source: patient Mode of arrival: ambulatory Limitations: no limitations History of Present Illness HPI narrative: Patient is a 49-year-old female who presents with laceration to left index finger. Patient cut finger with knife at work. Patient's tetanus shot is up-to-date within last 2 years. Related Data Home Medications ?Medication ?Instructions ?Recorded ?Confirmed ?Last Taken ?Type buspirone 15 mg tablet 15 mg PO BID 12/23/24 12/23/24 Unknown History hydroxyzine HCl 25 mg tablet 25 mg PO DAILY 12/23/24 12/23/24 Unknown History trazodone 50 mg tablet 50 mg PO HS 12/23/24 12/23/24 Unknown History Allergies Allergy/AdvReac Type Severity Reaction Status Date / Time shellfish derived Allergy Nausea and Verified 12/23/24 13:27 Vomiting Review of Systems 2 Review of Systems: All systems reviewed & are unremarkable except as noted in HPI and below Constitutional: Constitutional: Denies body ache(s), Denies chills, Denies fatigue, Denies fever(s), Denies headache(s), Denies malaise and Denies weakness Eyes: Eyes: Denies blurry vision, Denies irritation and Denies loss of vision ENT: Denies otalgia, Denies headache(s), Denies nasal discharge, Denies sinus pain and Denies sore throat Cardiovascular: Cardiovascular: Denies chest pain, Denies irregular heart rhythm and Denies dyspnea Respiratory: Respiratory: Denies dyspnea Gastrointestinal: Gastrointestinal: Denies abdominal pain, Denies melena, Denies hematochezia, Denies diarrhea, Denies nausea and Denies vomiting Musculoskeletal: Musculoskeletal: Denies back pain, Denies myalgias and Denies arthralgias Integumentary/Breasts: Skin/Breast: Denies pruritus, Denies rash and Reports wounds Neurologic: Denies headache(s), Denies loss of vision and Denies weakness Psychiatric: Psychiatric: Reports no additional psychiatric complaints Endocrine: Endocrine: Denies fatigue PMFSH Past Medical History Medical History Erosive esophagitis Elevated transaminase level Dehydration Premenopausal patient Ankle fracture Surgical History Surgical History History of bone graft at age 13 Family History Family History Father Smoker in home Lung cancer Mother Smoker in home Lung cancer Other Brain cancer Social History Social History Smoking status: Current every day smoker Tobacco type: cigarettes Second hand tobacco smoke exposure: Yes Smoking end date: 05/04/16 Additional smoking assessment comments: only smokes THC on a daily basis Alcohol intake: current Drinks per week: 20 Substance use: current Substance use type: marijuana Last use: 07/07/24 Do You Feel Safe in your Home?: Yes Lack of Transportation: No Lack of Food: Never True Current Housing: I Have Housing Concerned About Future Housing: No Difficulty Paying Gas/Electric Bills: No Difficulty Paying for Meds: No Currently Unemployed: No Education: High School Diploma/GED Difficulty w/ Childcare or Family Care: No Living arrangements: with family Occupation/Education: occupation Gender identity (if verbalized by the patient): Female Sexual Orientation (if Verbalized by the Patient): Straight or Heterosexual Spiritual care concerns: No Comments At time of signature, agree with nursing past medical, surgical, social and family history. There is no relevant family history pertinent to the presenting complaint. Exam 2 Const: General: cooperative, healthy appearing, comfortable, no acute distress and well nourished Nutritional Appearance: well nourished O rientation/consciousness: patient oriented x3 Limitations: no limitations HENMT: Head: normal to inspection, normocephalic and atraumatic Ears: h earing grossly normal bilaterally and external ears normal Face/Nose/Sinus: N ormal external nose present, normal facial exam and face symmetric Face and sinus: normal facial exam and face symmetric Mouth: Yes lip normal Eyes: General: appearance normal, both eyes and all related structures A lignment and Position: alignment normal and position normal Periorbital: p eriorbital findings normal Eyelids: eyelids normal Pupils: Equal, round and reactive pupils present EOM: EOMs intact bilaterally Neck: Neck: normal visual inspection, full ROM and supple Chest: Chest palpation & inspection: normal inspection of the chest Resp: Effort & Inspection: normal respiratory effort and able to speak in complete sentences Auscultation: clear to auscultation bilaterally Cardio: Rate: regular rate Rhythm: regular rhythm Heart sounds: S1 normal heart sound present and S2 normal heart sound present GI: Inspection: normal to inspection Skin: General skin exam: normal color and no rashes or lesions noted Neuro: General: patient oriented x3 and moves all extremities Cranial nerves: Yes Equal, round and reactive pupils present Speech: normal speech Gait exam (Neuro): Normal gait present Extrem: General: normal to inspection, full ROM and no edema Hand/finger images: 1. 1 cm flap laceration. no foreign body Psych: Appearance: grossly normal and well kempt Mental Status: mental status grossly normal Speech and movement: Normal speech and movement present Affect: normal affect Attitude: cooperative Thought process: Normal thought process present Course Course Emergency Course: Patient is aware of diagnosis, understands and agrees to treatment plan. Anticipatory guidance given. Patient agrees to follow-up as directed and is aware of reasons to seek care at the emergency department. Portions of this record may have been created with voice recognition software Level of Care: Express Care Visit Vital Signs Vital signs: Vital Signs Temperature 36.9 C 12/23/24 13:32 Pulse Rate 85 12/23/24 13:32 Respiratory Rate 16 12/23/24 13:32 Blood Pressure 131/90 12/23/24 13:32 Pulse Oximetry 99 12/23/24 13:32 Oxygen Delivery Room Air 12/23/24 13:32 Temperature 36.9 C 12/23/24 13:32 Pulse Rate 85 12/23/24 13:32 Respiratory Rate 16 12/23/24 13:32 Blood Pressure 131/90 12/23/24 13:32 Pulse Oximetry 99 12/23/24 13:32 Oxygen Delivery Room Air 12/23/24 13:32 Reviewed Procedures Laceration Laceration 1: Date: 12/23/24 Time: 13:50 Site: hand Side (If applicable): left Size (cm): 1 Description: flap Depth: simple, single layer Pre-repair: irrigated ====== Skin Level ====== Skin layer closed with: dermabond and steri strips ====== Subcutaneous Layer ====== ====== Muscle Layer ====== ====== Tendon Layer ====== Dressing: Procedure explained patient. Wound irrigated with 200 mL of sterile saline and wound beer coil cleaner. No foreign body present. Closed with Dermabond and Steri- Strips. Patient tolerated well. Bleeding controlled MDM - Wound/Laceration MDM Narrative Medical decision making narrative: Tetanus shot is up-to-date within the last 2 years. Laceration closed with Dermabond and Steri-Strips Pt well hydrated appearing, in no respiratory distress, hemodynamically stable. Recommend supportive care. The patient is stable at time of discharge the clinical impression was discussed and the patient was given the opportunity to ask questions, which were addressed as completely as possible given the information available at present. Anticipatory guidance and return to care precautions were discussed and the importance of primary care follow-up was stressed and encouraged. The patient voiced understanding of the plan, indications to return, and the need for follow-up. Exam findings show no acute concerns or changes Patient is appropriate for outpatient treatment and follow-up. Differential Diagnosis Differential diagnosis: Likely laceration Medical Records Attestation: I reviewed the patient's medical records. Discharge Plan Discharge Clinical Impression: Finger laceration Qualifiers: Encounter type: initial encounter Finger: index finger Damage to nail status: w ithout damage Foreign body presence: without foreign body Laterality: left Q ualified Code(s): S61.211A - Laceration without foreign body of left index finger without damage to nail, initial encounter Patient Disposition: Home, Self-Care Condition: Stable Instructions: Finger Laceration (ED) Additional Instructions: Skin adhesive care: -adhesive works like a bandage; do not use antibiotic ointment as it can break down the adhesive -You can shower while the adhesive is on your skin, but do not take a bath or soak or scrub the area for 7-10 days. Dry your skin by patting it gently with a towel. -The adhesive will peel off on its own; usually by 5-10days. If after 10 days, you still have adhesive on you, you can use antibiotic ointment or petroleum jelly to get it off. After you heal, you should protect the scar from the sun. Use sunscreen on the area or wear clothes or a hat that covers the scar. Follow up with your PCP as needed If you have any worsening of symptoms, redness, swelling, fever, or drainage, or any other concerns please follow up with your PCP or go to the ED immediately. Patient Language: Barbadian Prescriptions: No Action buspirone 15 mg tablet 15 mg PO BID hydroxyzine HCl 25 mg tablet 25 mg PO DAILY trazodone 50 mg tablet 50 mg PO HS pantoprazole [Protonix] 40 mg Tablet,Delayed Release (Dr/Ec) 40 mg PO BID Qty: 60 1RF Follow-up/Referrals: Delmy,CARMELA Bright [Primary Care Provider] - 3 Days Stand Alone Forms: Work/School Release IP Time of Disposition: 13:56
== END 2024-12-23 14:01 | disposition home or self-care (01) ==
PROVIDERS: Emergency Provider Nurse Practitioner Family; PCP Registered Nurse
DX: S61.211A Laceration without foreign body of left index finger without damage to nail, initial encounter (principal); W26.0XXA Contact with knife, initial encounter; F17.210 Nicotine dependence, cigarettes, uncomplicated
CPT/HCPCS: 12001; 99212; G0463